=== PATIENT | female | born 1990 | race Caucasian/White ===

== ENCOUNTER 2019-01-09 08:09 | Emergency (ER) | payer MEDICAID, OTHER ==
[~2019-01-09] VITALS: Ht 160 cm; Wt 88.1 kg
[~2019-01-09 08:09] MED LIST: CALAMINE TOP; DIPH25CA6 PO
[2019-01-09 08:15] VITALS: BP 132/79; PULSE 90; RESP 20; Ht 160 cm; Wt 88.1 kg
--- NOTE | 2019-01-09 08:45 | ERD ---
ER Documentation Chief Complaint Chief Complaint c/o right arm pain, tender, possible insect bite. Fainted yest. per pt. HPI Patient is a 28 years old female with past medical history of hypertension presenting to the clinic for rash on right forearm and syncope episode yesterday. 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 Patient admits to mild dizziness but denies head trauma, loss of consciousness, injury. Patient states that the chiropractor assessed patient and had normal blood pressure reading during event. Patient admits that she was sent home and followed up in the ER due to persistent mild dizziness. Patient denies dysuria, urinary urgency, neck pain, headache, fever, night sweats, joint pain. Patient admits to eating food on a regular interval denies fasting state. She reports rash is pruritic and admits to scratching it and denies using any OTC medication. ROS All systems reviewed and are negative except as per history of present illness. Medications Home Meds Active Scripts Calamine* (Calamine*) 120 Ml Lotion, 1 APPLIC TOP Q4H for RASH for 7 Days, EA Prov:RENATA MUÑOZ PA-C 01/09/19 Diphenhydramine Hcl (Benadryl) 25 Mg Cap, 25 MG PO TID for 7 Days, #21 CAP Prov:RENATA MUÑOZ PA-C 01/09/19 Allergies Allergies: Coded Allergies: No Known Allergy (Unverified , 01/09/19) PMhx/Soc History of Surgery: Yes (C/S) Anesthesia Reaction: No Hx Neurological Disorder: No Hx Respiratory Disorders: No Hx Cardiac Disorders: Yes (HTN) Hx Psychiatric Problems: No Hx Miscellaneous Medical Probl: No Hx Alcohol Use: No Hx Substance Use: No Hx Tobacco Use: No Smoking Status: Never smoker FmHx Family History: No diabetes, No coronary disease, No other Physical Exam Vitals Vital Signs Date Temp Pulse Resp B/P (MAP) Pulse Ox O2 O2 Flow FiO2 Time Delivery Rate 01/09/19 98.6 90 20 132/79 98 08:15 (96) Physical Exam Const: No acute distress Head: Atraumatic. Active sinus tenderness. Eyes: Normal Conjunctiva. PERRLA. No nystagmus. Resp: Clear to auscultation bilaterally Cardio: Regular rate and rhythm, no murmurs Abd: Soft, non tender, non distended. Normal bowel sounds Skin: Macular rash noted on right medial ventral forearm. No induration, no pus drainage. Mild tenderness to palpation. Back: No midline or flank tenderness Ext: No cyanosis, or edema Neur: Awake and alert. CNII-XII intact. Psych: Normal Mood and Affect Result Diagram: 01/09/19 0856 01/09/19 0856 Results 24 hrs Laboratory Tests Test 01/09/19 08:56 01/09/19 09:01 01/09/19 09:02 White Blood Count 7.5 10^3/ul Red Blood Count 4.62 10^6/ul Hemoglobin 13.9 g/dl Hematocrit 42.0 % Mean Corpuscular Volume 90.9 fl Mean Corpuscular Hemoglobin 30.1 pg Mean Corpuscular 33.1 g/dl Hemoglobin Concent Red Cell Distribution Width 12.2 % Platelet Count 265 10^3/UL Mean Platelet Volume 10.0 fl Immature Granulocytes % 0.100 % Neutrophils % 54.2 % Lymphocytes % 37.2 % Monocytes % 6.6 % Eosinophils % 1.6 % Basophils % 0.3 % Nucleated Red Blood Cells % 0.0 /100WBC Immature Granulocytes # 0.010 10^3/ul Neutrophils # 4.1 10^3/ul Lymphocytes # 2.8 10^3/ul Monocytes # 0.5 10^3/ul Eosinophils # 0.1 10^3/ul Basophils # 0.0 10^3/ul Nucleated Red Blood Cells # 0.0 10^3/ul Sodium Level 141 mmol/L Potassium Level 4.3 mmol/L Chloride Level 103 mmol/L Carbon Dioxide Level 29 mmol/L Anion Gap 9 Blood Urea Nitrogen 17 mg/dl Creatinine 0.55 mg/dl Est Glomerular Filtrat Rate mL/min > 60 mL/min Glucose Level 95 mg/dl Calcium Level 9.5 mg/dl POC Beta HCG, Qualitative NEGATIVE Bedside Glucose 95 mg/dL Current Medications Medications Dose Sig/Cortes Start Time Status Last (Trade) Ordered Route PRN Stop Time Admin Dose Reason Admin Zinc 1 applic ONCE ONCE 01/09/19 DC 01/09/19 Acetate/ TOP 09:00 09:04 Diphenhydrami 01/09/19 09:01 ne (Benadryl 2% Cr) Procedures/MDM Patient was seen and evaluated for rash and dizziness without trauma/fall. Skin rash most likely from insect bite without any signs of cellulitis or skin perforation. CBC, CMP grossly normal. POC glucose is 95. Urine negative. Provider forgot to put order for urinalysis. Dizziness is currently unexplained and requires further investigation that can be managed outpatient. Patient stable ready for discharge. Patient will be discharged with Benadryl and calamine lotion. Patient was advised to avoid scratching rash. Follow-up with PCP for further evaluation for unexplained dizziness. Departure Diagnosis: Primary Impression: Rash Additional Impression: Dizziness Condition: Stable Patient Instructions: Self-Care for Skin Rashes, Dizziness, Unk Cause Referrals: [facility] Additional Instructions: Patient advised to return to the ED immediately for new or worsening symptoms. P atient advised to follow up with primary care provider in the next 24-48 hours. Patient verbalized understanding and agrees with treatment plan and course of action. If patient has no primary care they may follow up with [facility] [address] [place] [id number] or [facility] [address] [place] [address] or [facility] [address] [place] [address] RENATA MUÑOZ PA-C Jan 09, 2019 08:45
[2019-01-09] MEDS ORDERED: DIPHENHYDRAMINE 2%/ZINC 28.4 GM CR TOP ONE (09:00)
== END 2019-01-09 10:42 | disposition home or self-care (01) ==
LOC: FTE 08:09
DX: R21 Rash and other nonspecific skin eruption (principal); R42 Dizziness and giddiness; I10 Essential (primary) hypertension
CPT/HCPCS: 36415; 80048; 81025; 82962; 85025; 93005; Z7502; Z7610